=== PATIENT | female | born 1990 | race Two or more races ===

== ENCOUNTER 2017-06-02 01:50 | Emergency (ER) | payer OTHER ==
--- NOTE | 2017-06-02 01:54 | EDPHY ---
H & P HPI/ROS: HPI CHIEF COMPLAINT: Right lateral rib pain. Worse when coughing HISTORY OF PRESENT ILLNESS: Patient very pleasant 26-year-old female she denies having any significant medical history she is to be on control but is been off control for month. She reports to me that for the past month she has had intermittent coughing spells. She has been coughing worse over the past few weeks. With yellow productive sputum. No fever. She presents emergency room tonight due to severe 10/10 right lateral rib pain worse when she coughs and worse when she takes a deep breath. She denies any associated trauma. However she did have manipulation by a chiropractor yesterday and after this her rib pain got worse. She denies any midline back pain. The pain is worse when she takes deep breath in. It is pleuritic in nature sharp stabbing located right lateral ribs. Worse when she coughs. Worse when she takes a deep breath in. Denies fever. Denies vomiting. Denies abdominal pain. Denies chest pain except for right lateral rib pain. No history of PE. Off control. Does not smoke. Past Medical History: Denies medical history Past Surgical History: Denies surgical history Social History: Denies daily use drugs alcohol tobacco. 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 Family History: Noncontributory. ROS REVIEW OF SYSTEMS: A comprehensive 10 point review of systems is otherwise negative aside from elements mentioned in the history of present illness. Exam Constitutional appears well nontoxic triage nursing summary reviewed, vital signs reviewed, awake/alert. Eyes normal conjunctivae and sclera, EOMI, PERRLA. HENT normal inspection, atraumatic, moist mucus membranes, no epistaxis, neck supple/ no meningismus, no raccoon eyes. Respiratory clear to auscultation bilaterally, normal breath sounds, no respiratory distress, no wheezing. Cardiovascular tender palpation over the right lateral ribs no external visible signs of trauma,, no murmur, no edema, distal pulses normal. Gastrointestinal soft, non-tender, no rebound, no guarding, normal bowel sounds, no distension, no pulsatile mass. Genitourinary no CVA tenderness. Musculoskeletal no midline vertebral tenderness, full range of motion, no calf swelling, no tenderness of extremities, no meningismus, good pulses, neurovascularly intact. Skin pink, warm, & dry, no rash, skin atraumatic. Neurologic awake, alert and oriented x 3, AAOx3, moves all 4 extremities equally, motor intact, sensory intact, CN II-XII intact, normal cerebellar, normal vision, normal speech. Psychiatric normal mood/affect. Heme/Lymph/Immune no lymphadenopathy. Differential Diagnosis: Includes but is not limited to in a particular order pleurisy, pneumonia, pleural effusion, pulmonary embolism, musculoskeletal rib pain, rib fracture, musculoskeletal chest wall pain Medical Decision Making: Plan for this patient x-ray with rib series right- sided, IV establishment IV fluid bolus Toradol for pain control Dilaudid for pain control check basic blood work. Check D-dimer. Re-evaluate. Re-evaluation: EKG interpretation by me on record in [facility] system. Impression time of EKG 2:20 a.m., this is sinus rhythm rate of 73. I do not appreciate acute ischemic changes. There is no ST elevation. No ST depression. No T-wave abnormalities. No prolonged intervals. 0247: Patient's x-rays rib series reviewed by myself. No pneumothorax visualize. No rib fractures visualized. Unremarkable x-ray. [id number]: Blood work has been reviewed as well as chest x-ray. No evidence of pneumothorax or rib fracture. It is possible she has a musculoskeletal chest wall strain. Blood work is reassuring a D-dimer. Nonischemic EKG normal troponin. Feel comfortable allowing to go home. Given her cough is most likely musculoskeletal chest wall pain. Recommend cough suppressant, will prescribe ibuprofen 800 mg for mild pain [place] for severe pain Zofran for nausea. Do recommend getting [id number] cough medication. As well as she understands return emergency room she develops worsening symptoms questions or concerns. Source: Patient - Medical/Surgical History Hx Asthma: No Hx Chronic Respiratory Disease: No Hx Diabetes: No Hx Cardiac Disease: No Hx Renal Disease: No Hx Cirrhosis: No Hx Alcoholism: No Hx HIV/AIDS: No Hx Splenectomy or Spleen Trauma: No Other PMH: pilonidal cyst 2 months ago. - Social History Smoking Status: Never smoked Constitutional: Initial Vital Signs Temperature (C) 37.2 C 06/02/17 01:53 Heart Rate 90 06/02/17 01:53 Respiratory Rate 16 06/02/17 01:53 Blood Pressure 114/79 06/02/17 01:53 O2 Sat (%) 96 06/02/17 01:53 O2 Delivery Mode Room Air Allergies/Adverse Reactions: No Known Allergies Allergy (Verified 01/09/16 19:58) Home Medications: Medication Instructions Recorded Hydrocodone/APAP 5/325 [[place] 1 - 2 tab PO Q4H PRN #14 tab 06/02/17 5/325] Ibuprofen [Motrin (*)] 800 mg PO Q6-8PRN #20 tab 06/02/17 Ondansetron HCl [Zofran] 4 mg PO Q4-6PRN PRN #10 tablet 06/02/17 Medical Decision Making - Data Points Laboratory Results: Laboratory Results 06/02/17 02:09 06/02/17 02:09 06/02/17 06/02/17 06/02/17 03:00 02:09 02:09 WBC RBC Hgb Hct MCV MCH MCHC RDW Plt Count MPV Neut % (Auto) Lymph % (Auto) [place] % (Auto) Eos % (Auto) Baso % (Auto) Nucleat RBC Rel Count Absolute Neuts (auto) Absolute Lymphs (auto) Absolute Monos (auto) Absolute Eos (auto) Absolute Basos (auto) Absolute Nucleated RBC Immature Gran % Immature Gran # D-Dimer Sodium 140 mEq/L mEq/L (134-144) Potassium 4.0 mEq/L mEq/L (3.5-5.2) Chloride 103 mEq/L mEq/L (97-110) Carbon Dioxide 21 mEq/l L mEq/l (22-31) Anion Gap 16 mEq/L mEq/L (8-16) BUN 16 mg/dL mg/dL (7-23) Creatinine 0.7 mg/dL mg/dL (0.6-1.0) Estimated GFR > 60 Glucose 131 mg/dL H mg/dL (70-100) Calcium 9.8 mg/dL mg/dL (8.5-10.4) Total Bilirubin 0.3 mg/dL mg/dL (0.1-1.4) Conjugated Bilirubin 0.2 mg/dL mg/dL (0.0-0.5) Unconjugated Bilirubin 0.1 mg/dL mg/dL (0.0-1.1) AST 26 IU/L IU/L (14-46) ALT 39 IU/L IU/L (9-52) Alkaline Phosphatase 87 IU/L IU/L (38-126) Total Protein 7.8 g/dL g/dL (6.3-8.2) Albumin 4.6 g/dL g/dL (3.5-5.0) Lipase 150 IU/L IU/L (23-300) Beta HCG, Qual NEGATIVE Urine Color YELLOW Urine Appearance CLEAR Urine pH 6.0 (5.0-7.5) Ur Specific [place] 1.019 (1.002-1.030) Urine Protein NEGATIVE (NEGATIVE) Urine Ketones NEGATIVE (NEGATIVE) Urine Blood NEGATIVE (NEGATIVE) Urine Nitrate NEGATIVE (NEGATIVE) Urine Bilirubin NEGATIVE (NEGATIVE) Urine Urobilinogen NEGATIVE EU EU (0.2-1.0) Ur Leukocyte Esterase NEGATIVE (NEGATIVE) Urine Glucose NEGATIVE (NEGATIVE) 06/02/17 06/02/17 02:09 02:09 WBC 10.75 10^3/uL H 10^3/uL (3.80-9.50) RBC 5.30 10^6/uL 10^6/uL (4.18-5.33) Hgb 16.3 g/dL g/dL (12.6-16.3) Hct 45.8 % % (38.0-47.0) MCV 86.4 fL fL (81.5-99.8) MCH 30.8 pg pg (27.9-34.1) MCHC 35.6 g/dL g/dL (32.4-36.7) RDW 11.9 % % (11.5-15.2) Plt Count 251 10^3/uL 10^3/uL (150-400) MPV 9.9 fL fL (8.7-11.7) Neut % (Auto) 59.7 % % (39.3-74.2) Lymph % (Auto) 31.9 % % (15.0-45.0) [place] % (Auto) 6.6 % % (4.5-13.0) Eos % (Auto) 1.0 % % (0.6-7.6) Baso % (Auto) 0.3 % % (0.3-1.7) Nucleat RBC Rel Count 0.0 % % (0.0-0.2) Absolute Neuts (auto) 6.42 10^3/uL 10^3/uL (1.70-6.50) Absolute Lymphs (auto) 3.43 10^3/uL H 10^3/uL (1.00-3.00) Absolute Monos (auto) 0.71 10^3/uL 10^3/uL (0.30-0.80) Absolute Eos (auto) 0.11 10^3/uL 10^3/uL (0.03-0.40) Absolute Basos (auto) 0.03 10^3/uL 10^3/uL (0.02-0.10) Absolute Nucleated RBC 0.00 10^3/uL 10^3/uL (0-0.01) Immature Gran % 0.5 % % (0.0-1.1) Immature Gran # 0.05 10^3/uL 10^3/uL (0.00-0.10) D-Dimer 0.32 ug/mLFEU ug/mLFEU (0.00-0.50) Sodium Potassium Chloride Carbon Dioxide Anion Gap BUN Creatinine Estimated GFR Glucose Calcium Total Bilirubin Conjugated Bilirubin Unconjugated Bilirubin AST ALT Alkaline Phosphatase Total Protein Albumin Lipase Beta HCG, Qual Urine Color Urine Appearance Urine pH Ur Specific [place] Urine Protein Urine Ketones Urine Blood Urine Nitrate Urine Bilirubin Urine Urobilinogen Ur Leukocyte Esterase Urine Glucose Medications Given: Discontinued Medications Hydromorphone HCl (Dilaudid) 1 mg IVP EDNOW ONE Stop: 06/02/17 02:06 Last Admin: 06/02/17 02:14 Dose: 1 mg Sodium Chloride (Ns) 1,000 mls @ 0 mls/hr IV EDNOW ONE; Wide Open PRN Reason: Protocol Stop: 06/02/17 02:06 Last Admin: 06/02/17 02:16 Dose: 1,000 mls Ketorolac Tromethamine (Toradol) 15 mg IVP EDNOW ONE Stop: 06/02/17 02:07 Last Admin: 06/02/17 02:14 Dose: 15 mg Ondansetron HCl (Zofran) 4 mg IVP EDNOW ONE Stop: 06/02/17 02:06 Last Admin: 06/02/17 02:14 Dose: 4 mg Ondansetron HCl (Zofran) 4 mg IVP EDNOW ONE Stop: 06/02/17 03:41 Last Admin: 06/02/17 03:42 Dose: 4 mg Departure - Departure Disposition: Home, Routine, Self-Care Clinical Impression: Rib pain on right side Condition: Good Instructions: Musculoskeletal Pain (ED), Thoracic Pain (ED) Additional Instructions: 1. Return emergency room if he develops worsening pain questions or concerns. 2. [place] for severe pain. 3. Ibuprofen for mild pain. 4. Take it easy. Referrals: Amy Case PA [Primary Care Provider] - As per Instructions Prescriptions: Hydrocodone/APAP 5/325 [[place] 5/325] 1 - 2 tab PO Q4H PRN #14 tab PRN Reason: Pain, Moderate Ibuprofen [Motrin (*)] 800 mg PO Q6-8PRN #20 tab Ondansetron HCl [Zofran] 4 mg PO Q4-6PRN PRN #10 tablet PRN Reason: Nausea/Vomiting, Use 1st
[2017-06-02 01:59] VITALS: TEMP 99
[2017-06-02] MEDS ORDERED: HYDROmorphONE/DILAUDID 1 MG/ML INJ IVP ONE (02:05)
[2017-06-02] MEDS ORDERED: ONDANSETRON 4 MG/2 ML VIAL IVP ONE ×2 (02:05→03:40)
[2017-06-02] MEDS ORDERED: NS 1,000 ML IV ONE (02:05)
[2017-06-02] MEDS ORDERED: KETOROLAC 15 MG/1 ML SDV IVP ONE (02:06)
[2017-06-02 02:20] LABS: PLATELET COUNT 251 10^3/uL (150-400)
--- NOTE | 2017-06-02 02:30 | CPEKG ---
Heart Rate: 73 RR Interval: 822 P-R Interval: 144 QRSD Interval: 82 QT Interval: 364 QTC Interval: 401 P [place]: 51 QRS [place]: 47 T Wave [place]: 5 EKG Severity - NORMAL ECG - EKG Impression: SINUS RHYTHM Electronically Signed By: Franki Wagner 08-Jun-2017 12:36:33
--- NOTE | 2017-06-02 02:30 | CPEKG ---
Heart Rate: 73 RR Interval: 822 P-R Interval: 144 QRSD Interval: 82 QT Interval: 364 QTC Interval: 401 P [place]: 51 QRS [place]: 47 T Wave [place]: 5 EKG Severity - NORMAL ECG - EKG Impression: SINUS RHYTHM Electronically Signed By: Franki Wagner 08-Jun-2017 12:36:33
[2017-06-02 04:32] VITALS: BP 105/61; PULSE 74; RESP 18; O2SAT 97
== END 2017-06-02 04:32 | disposition home or self-care (01) ==
PROC: 3E0337Z Introduction of Electrolytic and Water Balance Substance into Peripheral Vein, Percutaneous Approach (ICD-10-PCS; principal; 2017-06-02)
DX: R07.81 Pleurodynia (principal); E86.9 Volume depletion, unspecified
CPT/HCPCS: 96374; J1170; J1885; J2405

== ENCOUNTER 2018-08-11 14:45 | Observation (INO) | payer OTHER ==
--- NOTE | 2018-08-11 14:52 | EDPHY ---
H & P Stated Complaint: nvd, rlq pain Time Seen by Provider: 08/11/18 14:50 HPI/ROS: CHIEF COMPLAINT: Abdominal pain HISTORY OF PRESENT ILLNESS: The patient presents to the ED with a 1 day history of abdominal pain. She reports several episodes of vomiting and 2 episodes of loose stool. She was seen by her primary care provider referred to the emergency department secondary to right lower quadrant pain and concerned about possible appendicitis. The patient reported that she felt well yesterday. She denies significant past medical history. She denies abdominal surgery. She does report she takes a control pill. REVIEW OF SYSTEMS: A comprehensive 10 point review of systems is otherwise negative aside from elements mentioned in the history of present illness. Source: Patient Exam Limitations: No limitations - Personal History LMP (Females 10-55): 8-14 Days Ago Current Tetanus Diphtheria and Acellular Pertussis (TDAP): Yes - Medical/Surgical History Hx Asthma: No Hx Chronic Respiratory Disease: No Hx Diabetes: No Hx Cardiac Disease: No Hx Renal Disease: No Hx Cirrhosis: No Hx Alcoholism: No Hx HIV/AIDS: No Hx Splenectomy or Spleen Trauma: No Other PMH: pilonidal cyst 2 months ago. - Social History Smoking Status: Never smoked - Physical Exam Exam: General Appearance: Alert, no distress Eyes: Pupils equal and round no pallor or injection ENT, Mouth: Mucous membranes moist Respiratory: There are no retractions, lungs are clear to auscultation Cardiovascular: Regular rate and rhythm Gastrointestinal: Tenderness to palpation right lower quadrant Neurological: 5/5 strength noted all 4 extremities Skin: Warm and dry, no rashes Musculoskeletal: Neck is supple nontender Extremities: symmetrical, full range of motion Constitutional: Initial Vital Signs Temperature (C) 37.2 C 08/11/18 14:47 Heart Rate 80 08/11/18 14:47 Respiratory Rate 16 08/11/18 14:47 Blood Pressure 120/74 08/11/18 14:47 O2 Sat (%) 97 08/11/18 14:47 O2 Delivery Mode Room Air Allergies/Adverse Reactions: No Known Allergies Allergy (Verified 01/09/16 19:58) Home Medications: Medication Instructions Recorded NK [No Known Home Meds] 08/11/18 Medical Decision Making - Diagnostics Imaging Results: Imaging Impressions Abdomen CT 08/11/18 15:38 Impression: 1. Equivocal CT findings of acute appendicitis with midportion of the appendix measuring up to 0.8 cm. Although this is mildly dilated per size criteria, no periappendiceal fat stranding is identified. Continued surveillance is recommended. 2. Reactive appearing right lower quadrant mesenteric lymph nodes which can be seen in mesenteric adenitis. Bossman Arevalo was notified of these findings by telephone at 5:06 PM on 08/11/2018 ED Course/Re-evaluation: The patient presents to the ED for evaluation of abdominal pain, vomiting and several loose stools today. The patient's primary care provider was concerned about appendicitis. The patient did have reproducible tenderness to palpation in the right lower quadrant. She certainly does have some symptoms which could be consistent with a enteritis and mesenteric adenitis. Given the uncertainty of the diagnosis we did discuss risks and benefits of imaging. It is not clear that the patient has obvious appendicitis and I do feel that CT scan would be prudent for further characterization of her symptoms. The patient's CT scan demonstrates ongoing equivocal findings of a slightly enlarged appendix without surrounding inflammation but also notes mesenteric adenitis noted in the region. The patient had an IV established he received a L of normal saline. She received Zofran and Toradol. The patient was noted to have some pyuria however I feel this is likely a contaminant as the patient has no symptoms of a UTI. Given the equivocal nature of the CT scan I did consult with Dr. Gonsalves from General surgery for a ED evaluation. Differential Diagnosis: Differential diagnosis considered includes appendicitis, mesenteric adenitis, gastroenteritis, ectopic - Data Points Laboratory Results: Laboratory Results 08/11/18 15:13 08/11/18 15:13 08/11/18 08/11/18 08/11/18 15:13 15:13 15:13 WBC 10.00 10^3/uL H 10^3/uL (3.80-9.50) RBC 4.99 10^6/uL 10^6/uL (4.18-5.33) Hgb 14.9 g/dL g/dL (12.6-16.3) Hct 42.2 % % (38.0-47.0) MCV 84.6 fL fL (81.5-99.8) MCH 29.9 pg pg (27.9-34.1) MCHC 35.3 g/dL g/dL (32.4-36.7) RDW 11.9 % % (11.5-15.2) Plt Count 262 10^3/uL 10^3/uL (150-400) MPV 9.9 fL fL (8.7-11.7) Neut % (Auto) 88.8 % H % (39.3-74.2) Lymph % (Auto) 9.3 % L % (15.0-45.0) [place] % (Auto) 1.4 % L % (4.5-13.0) Eos % (Auto) 0.0 % L % (0.6-7.6) Baso % (Auto) 0.1 % L % (0.3-1.7) Nucleat RBC Rel Count 0.0 % % (0.0-0.2) Absolute Neuts (auto) 8.88 10^3/uL H 10^3/uL (1.70-6.50) Absolute Lymphs (auto) 0.93 10^3/uL L 10^3/uL (1.00-3.00) Absolute Monos (auto) 0.14 10^3/uL L 10^3/uL (0.30-0.80) Absolute Eos (auto) 0.00 10^3/uL L 10^3/uL (0.03-0.40) Absolute Basos (auto) 0.01 10^3/uL L 10^3/uL (0.02-0.10) Absolute Nucleated RBC 0.00 10^3/uL 10^3/uL (0-0.01) Immature Gran % 0.4 % % (0.0-1.1) Immature Gran # 0.04 10^3/uL 10^3/uL (0.00-0.10) Sodium 137 mEq/L mEq/L (135-145) Potassium 3.8 mEq/L mEq/L (3.5-5.2) Chloride 106 mEq/L mEq/L (97-110) Carbon Dioxide 21 mEq/l L mEq/l (22-31) Anion Gap 10 mEq/L mEq/L (6-14) BUN 16 mg/dL mg/dL (7-23) Creatinine 0.6 mg/dL mg/dL (0.6-1.0) Estimated GFR > 60 Glucose 127 mg/dL H mg/dL (70-100) Calcium 9.5 mg/dL mg/dL (8.5-10.4) Beta HCG, Qual NEGATIVE Urine Color Urine Appearance Urine pH Ur Specific [place] Urine Protein Urine Ketones Urine Blood Urine Nitrate Urine Bilirubin Urine Urobilinogen Ur Leukocyte Esterase Urine RBC Urine WBC Ur Epithelial Cells Urine Bacteria Urine Mucus Urine Glucose 08/11/18 14:55 WBC RBC Hgb Hct MCV MCH MCHC RDW Plt Count MPV Neut % (Auto) Lymph % (Auto) [place] % (Auto) Eos % (Auto) Baso % (Auto) Nucleat RBC Rel Count Absolute Neuts (auto) Absolute Lymphs (auto) Absolute Monos (auto) Absolute Eos (auto) Absolute Basos (auto) Absolute Nucleated RBC Immature Gran % Immature Gran # Sodium Potassium Chloride Carbon Dioxide Anion Gap BUN Creatinine Estimated GFR Glucose Calcium Beta HCG, Qual Urine Color YELLOW Urine Appearance HAZY Urine pH 5.0 (5.0-7.5) Ur Specific [place] 1.027 (1.002-1.030) Urine Protein NEGATIVE (NEGATIVE) Urine Ketones 2+ H (NEGATIVE) Urine Blood 1+ H (NEGATIVE) Urine Nitrate NEGATIVE (NEGATIVE) Urine Bilirubin NEGATIVE (NEGATIVE) Urine Urobilinogen NEGATIVE EU EU (0.2-1.0) Ur Leukocyte Esterase 1+ H (NEGATIVE) Urine RBC 5-10 /hpf H /hpf (0-3) Urine WBC 10-15 /hpf H /hpf (0-3) Ur Epithelial Cells TRACE /lpf /lpf (NONE-1+) Urine Bacteria TRACE /hpf H /hpf (NONE SEEN) Urine Mucus 1+ /lpf /lpf (NONE-1+) Urine Glucose NEGATIVE (NEGATIVE) Medications Given: Discontinued Medications Sodium Chloride (Ns) 1,000 mls @ 0 mls/hr IV EDNOW ONE; Wide Open PRN Reason: Protocol Stop: 08/11/18 20:09 Last Admin: 08/11/18 20:10 Dose: 1,000 mls Ketorolac Tromethamine (Toradol) 30 mg IVP EDNOW ONE Stop: 08/11/18 17:08 Last Admin: 08/11/18 17:18 Dose: 30 mg Departure - Departure Disposition: [facility] Clinical Impression: Appendicitis Condition: Good
[2018-08-11 15:28] LABS: PLATELET COUNT 262 10^3/uL (150-400)
[2018-08-11] MEDS ORDERED: IOPAMIDOL (ISOVUE 370) 100 ML BTL IV ONE (16:13)
[2018-08-11] MEDS ORDERED: KETOROLAC 30 MG/1 ML SDV IVP ONE (17:07)
[2018-08-11] MEDS ORDERED: cefOXitin SODIUM 1 GM in NS 50 ML IV ONE (19:58)
[2018-08-11] MEDS ORDERED: NS 1,000 ML IV ONE (20:08)
[2018-08-11] MEDS ORDERED: HEPARIN 5,000 UNIT/0.5 ML INJ ONE ×2 (20:38→20:54)
[2018-08-11] MEDS ORDERED: ceFAZolin 1 GM/5 ML SYR ONE ×2 (20:39→20:54)
--- NOTE | 2018-08-11 20:57 | GHP ---
DATE OF ADMISSION: 08/11/2018 ADMITTING DIAGNOSIS: Probable appendicitis, right lower quadrant pain, mesenteric adenitis. HISTORY: The patient is a 27-year-old female who went to bed last night at 9 p.m. feeling well. At 5 a.m. this morning she woke up and noted abdominal discomfort which became distinctly more prominent when she sat up. She vomited at that point and has had diarrhea twice during the course of the day. She has had vomiting several times with movement during the course of the day. She tried Tums, Pepto-Bismol and water during the course of the day and each prompt vomiting. At this point, she is only thirsty. There is a history of upper respiratory tract infection in the last week. There is no history of diarrhea, though her stool has been slightly more watery in the past week. She has not had any travel in the last 6 months. She has had antibiotics in the last 3 months for UTI. There are no prior similar symptoms. She has had no prior abdominal surgery. There is no history of inflammatory bowel disease. Her beta hCG is negative. SOCIAL HISTORY: She does not smoke. She drinks approximately a glass of wine a week. ALLERGIES: She has no known drug allergies. Her only medication is oral contraceptives. Her only surgery has been treatment of a pilonidal cyst 2-3 years ago. There is no history of rheumatic fever, tuberculosis, hepatitis, or transfusions. REVIEW OF SYSTEMS: Otherwise, completely negative. There are no limits on her activities and no history of steroid use. PHYSICAL EXAMINATION: VITAL SIGNS: Her blood pressure is 119/69, heart rate 70 , room air saturation is 98%. Temperature is 36.9. White blood cell count is 10.0 with 88.8% neutrophils. Hematocrit is 42.2, platelet count is 262. Beta hCG as mentioned above is negative. Glucose is 127. Her urine shows 10-15 white cells per high-power field. C and S is pending. GENERAL: She is awake, alert, pleasant and interactive. HEAD AND NECK: Her skull is normocephalic and atraumatic. She has normal dental occlusion. NEUROLOGIC: She is oriented to person, place, and time. GCS is 15. There are no focal lateralizing neurologic findings. NECK: Thyroid is not enlarged. There are no carotid bruits noted. LYMPHATICS: There is no cervical, supraclavicular, axillary or inguinal lymphadenopathy. BACK: Unremarkable. LUNGS: Clear to auscultation. CARDIAC: Shows S1, S2 to be normal. Normal split of S2 without murmurs, rubs, or gallops. ABDOMEN: Soft. She is nontender with cough. She does have a positive psoas, but a negative obturator sign. To palpation, left upper quadrant is 2, left mid abdomen is 1, left lower quadrant is 1, epigastrium is 1, periumbilical area is 1, suprapubic area is 1, right upper quadrant is 1, right mid abdomen is 2, right lower quadrant is 3. A CT shows some mesenteric adenitis. The appendix is 8 mm in diameter. I do not see any appendicoliths. There is no hyperemia of the wall and there is no periappendiceal "smudging." We talked about the options of observation, observation with antibiotics, admission with IV antibiotics, and surgery. After a long discussion with her family, she wishes to proceed with the surgical approach. She will receive 1 g of cefoxitin. /[id number]/MODL MTDD
[2018-08-11] MEDS ORDERED: MIDAZOLAM 2 MG/2 ML VIAL IVP ONE (21:01)
[2018-08-11] MEDS ORDERED: SCOPOLAMINE HYDROBROMIDE 1 MG/3 DAYS PATCH TD ONE (21:02)
[2018-08-11] MEDS ORDERED: LR 1,000 ML IV ONE (21:06)
[2018-08-11] MEDS ORDERED: SCOPOLAMINE HYDROBROMIDE 1 MG/3 DAYS PATCH TD SCH (21:15)
[2018-08-11] MEDS ORDERED: MIDAZOLAM 2 MG/2 ML VIAL ONE (21:30)
--- NOTE | 2018-08-11 21:31 | PDANEPAE ---
ANE History of Present Illness Laparoscopic Appendectomy ANE Past Medical History - Cardiovascular History Hx Hypertension: No Hx Arrhythmias: No Hx Chest Pain: No Hx Coronary Artery / Peripheral Vascular Disease: No Hx CHF / Valvular Disease: No Hx Palpitations: No - Pulmonary History Hx COPD: No Hx Asthma/Reactive Airway Disease: No Hx Recent Upper Respiratory Infection: No Hx Oxygen in Use at Home: No Hx Sleep Apnea: No - Endocrine History Hx Diabetes: No Hypothyroid: No Hyperthyroid: No Obesity: no ANE Review of Systems Review of systems is: negative Review of Systems: - Exercise capacity METS (RN): 4 METS ANE Patient History - Allergies Allergies/Adverse Reactions: No Known Allergies Allergy (Verified 01/09/16 19:58) - Home Medications Home Medications: Herbals/Supplements -Info Only 1 ea PO DAILY 08/11/18 [Last Taken 08/11/18] Norgestimate-Ethinyl Estradiol [F[place] 28 Tablet] 1 ea PO HS 08/11/18 [Last Taken 08/10/18] - NPO status NPO Since - Liquids (Date): 08/11/18 NPO Since - Liquids (Time): 10:00 NPO Since - Solids (Date): 08/11/18 NPO Since - Solids (Time): 10:00 - Anes Hx Anes Hx: post operative nausea - Smoking Hx Smoking Status: Never smoked ANE Labs/Vital Signs - Labs Result Diagrams: 08/11/18 15:13 08/11/18 15:13 - Vital Signs Blood Pressure: 114/72 Heart Rate: 67 Respiratory Rate: 18 O2 Sat (%): 99 Height: 154.94 cm Weight: 58.967 kg ANE Physical Exam - Airway Neck exam: FROM Mallampati Score: Class 1 Mouth exam: normal dental/mouth exam - Pulmonary Pulmonary: no respiratory distress, no rales or rhonchi - Cardiovascular Cardiovascular: regular rate and rhythym, no murmur, rub, or gallop - ASA Status ASA Status: I ANE Anesthesia Plan Anesthesia Plan: general endotracheal anesthesia
[2018-08-11] MEDS ORDERED: PROPOFOL 200 MG/20 ML VIAL ONE (21:34)
[2018-08-11] MEDS ORDERED: PROPOFOL/EMULSION 500 MG/50 ML BOTTLE IV ONE (21:34)
[2018-08-11] MEDS ORDERED: fentaNYL 100 MCG/2 ML INJ ONE ×5 (21:34→23:23)
[2018-08-11] MEDS ORDERED: ROCURONIUM 50 MG/5 ML VIAL ONE (21:34)
[2018-08-11] MEDS ORDERED: LIDOCAINE 2% 5 ML SDV ONE (21:34)
[2018-08-11] MEDS ORDERED: KETOROLAC 30 MG/1 ML SDV ONE (21:34)
[2018-08-11] MEDS ORDERED: GLYCOPYRROLATE 0.2 MG/1 ML VIAL ONE ×3 (21:34→22:35)
[2018-08-11] MEDS ORDERED: ONDANSETRON 4 MG/2 ML VIAL ONE (21:34)
[2018-08-11] MEDS ORDERED: DEXAMETHASONE 4 MG/ML VIAL ONE (21:35)
[2018-08-11] MEDS ORDERED: NALOXONE HCL 0.4 MG/ML INJ IVP PRN (22:22)
[2018-08-11] MEDS ORDERED: ALBUTEROL 3 ML DEYVIAL IH PRN (22:22)
[2018-08-11] MEDS ORDERED: ONDANSETRON 4 MG/2 ML VIAL IVP PRN ×2 (22:22→23:14)
[2018-08-11] MEDS ORDERED: PROMETHAZINE HCL 25 MG/ML INJ IVP PRN (22:22)
[2018-08-11] MEDS ORDERED: METOPROLOL TARTRATE 5 MG/5 ML INJ ONE (22:23)
[2018-08-11] MEDS: fentaNYL 100 MCG/2 ML INJ IVP PRN ×4 (23:02→23:40)
[2018-08-11] MEDS ORDERED: HYDROmorphONE/DILAUDID 1 MG/ML INJ IVP PRN (23:14)
--- NOTE | 2018-08-11 23:14 | POSTOPPROG ---
Post Op Note Date of Operation: 08/11/18 Surgeon: Dada Gonsalves Anesthesia: GET(General Endotracheal) Pre-op Diagnosis: RLQ pain, Mesenteric adenitis, Appendicitis Post-op Diagnosis: Acute unruptured appendicitis Indication: RLQ pain, Mesenteric adenitis, Appendicitis Procedure: Laparoscopic appendectomy Findings: Acute unruptured appendicitis Inf/Abcess present in the surg proc area at time of surgery?: No EBL: Minimal Total fluids administered: 1000 Complications: none Specimen(s): appendix
[2018-08-11] MEDS ORDERED: HYDROmorphONE/DILAUDID 2 MG/ML INJ ONE (23:23)
[2018-08-11] MEDS: HYDROmorphONE/DILAUDID 2 MG/ML INJ IVP PRN ×2 (23:25→23:41)
[2018-08-11] MEDS ORDERED: ACETAMINOPHEN 500 MG TAB ONE (23:27)
[2018-08-11] MEDS: ACETAMINOPHEN 500 MG TAB PO SCH (23:27)
[2018-08-11] MEDS ORDERED: LR 1,000 ML IV SCH (23:30)
[2018-08-12] MEDS: KETOROLAC 15 MG/1 ML SDV IVP SCH ×2 (00:23→06:01)
--- NOTE | 2018-08-12 06:29 | GOP ---
DATE OF OPERATION: 08/11/2018 SURGEON: Dada Gonsalves MD ANESTHESIA: General endotracheal. PREOPERATIVE DIAGNOSIS: Right lower quadrant pain, mesenteric adenitis, appendicitis. POSTOPERATIVE DIAGNOSIS: Acute unruptured appendicitis. PROCEDURE PERFORMED: Laparoscopic appendectomy. FINDINGS: Acute unruptured appendicitis. SPECIMENS: Appendix. ESTIMATED BLOOD LOSS: 10 cc. INDICATIONS: Same. DESCRIPTION OF PROCEDURE: The patient was placed on the operating table in supine position. She was placed under general endotracheal anesthesia. A surgical time-out was carried out and agreed to by all members of the operative team. Abdomen was now carefully prepped and draped. A curvilinear incision was made at the umbilicus. Dissection was continued down to the anterior rectus sheath which was elevated between Allis clamps and divided in the midline. Pursestring #0 PDS was placed. A disposable 11-12 mm Juan Carlos trocar was positioned. Intra-abdominal insufflation was carried out to 15 mmHg. The patient was placed in Trendelenburg. A 5 mm incision was made left lower quadrant for placement of the port. A transverse suprapubic incision was made for placement of another port. On abdominal examination, both ovaries were examined and found to be unremarkable. Photographic documentation was carried out. There were adhesions between the ascending colon and the anterior abdominal wall. These were not lysed. The appendix was edematous and enlarged. It was carefully elevated with an Endo Allis clamp. The mesoappendix was divided with the Harmonic Scalpel down to its base on the cecum. The appendix was carefully elevated. The appendiceal cecal junction was carefully taken with a cuff of cecum using a 35 mm powered Endo-LEAH stapler. The specimen was placed in EndoCatch bag and delivered via the umbilical port site. Pneumoperitoneum was re-established. Hemostasis is excellent. There was no evidence of peritoneal fluid. Irrigation with heparin and Ancef- containing irrigant is carried out. The small bowel was run for a distance of approximately 3.5 feet. Mesenteric adenitis is not appreciated. There is no evidence of a Meckel's diverticulum either. The ports were removed under direct vision. An additional 5-0 PDS suture was placed in inverted simple technique to close the midline fascial defect. The pursestring was now tied. The subcutaneous tissue was well irrigated. Hemostasis was found to be excellent. All incisions were closed with inverted simple sutures of #4-0 Vicryl. Mastisol and Steri-Strips were placed. Band-Aids were positioned. The patient was transferred to recovery in stable and satisfactory condition. FLUIDS ADMINISTERED: 1000 cc. COMPLICATIONS: None. /[id number]/MODL MTDD
--- NOTE | 2018-08-12 07:07 | POSTANESTH ---
Post Anesthetic Evaluation Cardiovascular Status: Normal, Stable Respiratory Status: Normal, Stable Level of Consciousness/Mental Status: Can Participate in Eval Pain Control: Adequate, Prn Tx Ordered Nausea/Vomiting Control: Adequate, Prn Tx Ordered Complications Possibly Related to Anesthesia: None Noted
[2018-08-12 08:20] VITALS: BP 93/45
[2018-08-12] MEDS: ACETAMINOPHEN 500 MG TAB PO SCH (09:47)
--- NOTE | 2018-08-12 09:48 | ASMTCMCOM ---
CM Note CM Note Notes: Pt is a 28 y/o female admitted for right lower quadrant pain, mesenteric adenitis and appendicitis. Pt went to surgery and had her appendix removed. Pt will most likely d/c independent when medically stable. No therapies ordered at this time. CM available for changes. Plan: Independent Date Signed: 08/12/2018 09:48 AM Electronically Signed By:MARIALUISA Villa
--- NOTE | 2018-08-12 14:30 | SOAPPROG ---
SOAP Progress Note Assessment/Plan: 08/12/18 14:27 Assessment: Doing well on POD#1, VSS, incisions clean and dry, passing gas, eating Plan: discharge Subjective: No complaints Objective: Vital Signs Temp Pulse Resp BP Pulse Ox 36.9 C 58 L 16 93/45 L 95 08/12/18 08:19 08/12/18 08:19 08/12/18 08:19 08/12/18 08:19 08/12/18 08:19 08/11/18 08/12/18 08/13/18 05:59 05:59 05:59 Intake Total 3550 Output Total 10 100 Balance 3540 -100 - Time Spent With Patient Time Spent With Patient: 15 Physical Exam - Physical Exam General Appearance: WD/WN, alert, no apparent distress EENT: PERRL/EOMI Neck: full range of motion Respiratory: chest non-tender, lungs clear, normal breath sounds Cardiac/Chest: regular rate, rhythm Abdomen: normal bowel sounds, non-tender, soft, distended, other (incisions clean and dry) Pelvic Exam: deferred Rectal: deferred Back: Normal inspection Skin: normal color, warm/dry Extremities: normal range of motion, non-tender, normal inspection Neuro/Psych: no motor/sensory deficits, alert, normal mood/affect, oriented x 3 ICD10 Worksheet Patient Problems: Problems Problem Status Onset Appendicitis Acute
--- NOTE | 2018-08-12 14:58 | GDS ---
DISCHARGE DIAGNOSIS: Acute appendicitis. DISPOSITION: Home. SURGERIES: Laparoscopic appendectomy. CONDITION: Good. DIET RECOMMENDATIONS: No restrictions on the diet. DIETARY TEXTURE: No restrictions. MEDICATIONS AT DISCHARGE: Tylenol 1000 mg every 8 hours, oral contraceptives be to be resumed. She may resume her herbal supplements. She is to take Toradol 10 mg every 6 hours for the next 5 days. She has Dilaudid for breakthrough pain. ACTIVITY: She is to use an alternative form of control for the next month. She is to avoid constipating foods such as bananas, rice, applesauce or cheese. For the next 3 weeks, she is to lift less than 10 pound. She may shower only. She is to avoid hot tubs or tubs. She is to keep small white tapes (Steri-Strips) in place. She is to take a multivitamin with 100% of the [employer] of zinc, copper and C on a daily basis. She may use a heating pad on her incisions for 45 minutes 4 times a day. She is to watch for signs of infection. Superficial infection would be redness, warmth, swelling or tenderness. Deep infection would be loss of appetite, fevers, chills, abdominal pain, and fatigue. The 1st day she returns to work, she is to limit the workday to 4 hours per day. She is to follow up with Dr. Liam Jenkins' office in 2 weeks. At that point, her pathology report will be shared with her. If she has other questions , she may call sooner than that. HOSPITAL COURSE: The patient was admitted and taken to the operating room, where an appendectomy was performed. She has done well postoperatively. She is taking a regular diet, passing gas, and pain is well-controlled. Her incisions were clean and dry. /[id number]/MODL MTDD
--- NOTE | 2018-08-12 15:49 | ASDISCHSUM ---
Discharge Information Plan Status:Home with No Needs Medically Cleared to Leave:08/11/2018 Discharge Date:08/11/2018 CM D/C Disposition:Home, Routine, Self-Care ADT D/C Disposition:Home, Routine, Self-Care Projected Discharge Date:08/11/2018 Transportation at D/C:Friend Discharge Delay Reason: Follow-Up Date:08/11/2018 Discharge Slot: Final Diagnosis:appendicitis Placement Information Patient Contact Information Contact Name:YARELIS Relationship:Sister Address: Work Phone: City: [facility] Phone: State/[employer] Code: Email: Financial Information Financial Class:[employer] Primary Plan Desc:[facility] Primary Plan Number:[id number] Secondary Plan Desc: Secondary Plan Number: Assessment Information LACE LACE Length of stay for Answers: Less than 1 day current admission Acuity / Level of Answers: No Care: Did the patient have an inpatient admission? Comorbidities - select Answers: Other Notes: appendicitis all that apply # of Emergency department Answers: 1-2 visits in the last 6 months Score: 2 Date Signed: 08/12/2018 03:48 PM Electronically Signed By:Diana Chin [facility] CM Progress Note CM Note CM Note Notes: Pt is a 28 y/o female admitted for right lower quadrant pain, mesenteric adenitis and appendicitis. Pt went to surgery and had her appendix removed. Pt will most likely d/c independent when medically stable. No therapies ordered at this time. CM available for changes. Plan: Independent Date Signed: 08/12/2018 09:48 AM Electronically Signed By:MARIALUISA Villa Case Management Discharge Plan Note Case Management Discharge Discharge Order Complete? Answers: Yes Patient to Obtain Answers: via Family Medications Transportation Arranged Answers: Family/Friends Transport will Pick (Date 08/12/2018 12:00 AM & Time) Family Notified Answers: Yes Notes: sister in the room Discharge Comments Notes: Pt to discharge independently with support from sister and boyfriend. Spoke with pt in the room. No CM needs noted at this time. CM available should needs change. Date Signed: 08/12/2018 03:49 PM Electronically Signed By:Diana Chin Intervention Information
[2018-08-12] MEDS ORDERED: NORGESTIMATE ETHINYL ESTRADIOL PO SCH (21:00)
[2018-08-14] MEDS ORDERED: PATCH REMOVAL 1 EA PATCH TD SCH (21:02)
== END 2018-08-12 16:38 | disposition home or self-care (01) ==
LOC: F1N 23:41
PROVIDERS: ADMIT Surgery; ATTEND Surgery
PROC: 0DTJ4ZZ Resection of Appendix, Percutaneous Endoscopic Approach (ICD-10-PCS; principal; 2018-08-11 21:00)
DX: K35.80 Unspecified acute appendicitis (principal); I88.0 Nonspecific mesenteric lymphadenitis; E86.0 Dehydration
CPT/HCPCS: 44970; 74177; 96361; 96374; 96375; 96376; 99285; G0378; J0694; J1100; J1170; J1644; J1885; J2250; J2405; J2704; J3010; Q9967

== ENCOUNTER 2018-08-15 12:32 | Emergency (ER) | payer OTHER ==
[2018-08-15 12:38] VITALS: BP 106/57
--- NOTE | 2018-08-15 13:17 | EDPHY ---
H & P Stated Complaint: hematuria, nausea/dizzy, appy 08/11/18 Time Seen by Provider: 08/15/18 13:16 - Personal History LMP (Females 10-55): 8-14 Days Ago - Medical/Surgical History Hx Asthma: No Hx Chronic Respiratory Disease: No Hx Diabetes: No Hx Cardiac Disease: No Hx Renal Disease: No Hx Cirrhosis: No Hx Alcoholism: No Hx HIV/AIDS: No Hx Splenectomy or Spleen Trauma: No Other PMH: pilonidal cyst 2 months ago. appy 08/11/18 - Social History Smoking Status: Never smoked Constitutional: Initial Vital Signs Temperature (C) 36.7 C 08/15/18 12:36 Heart Rate 76 08/15/18 12:36 Respiratory Rate 16 08/15/18 12:36 Blood Pressure 106/57 L 08/15/18 12:36 O2 Sat (%) 97 08/15/18 12:36 O2 Delivery Mode Room Air Allergies/Adverse Reactions: No Known Allergies Allergy (Verified 01/09/16 19:58) Home Medications: Medication Instructions Recorded Herbals/Supplements -Info Only 1 ea PO DAILY 08/11/18 Norgestimate-Ethinyl Estradiol 1 ea PO HS 08/11/18 [Femynor 28 Tablet] Acetaminophen [Tylenol ES 500 mg 1,000 mg PO Q8H tab 08/12/18 (*)] Ketorolac Tromethamine [Toradol 1 tab PO Q6 5 Days tab 08/12/18 10mg tab] Cephalexin [Keflex (RX)] 500 mg PO TID #20 cap 08/15/18 Phenazopyridine HCl [Pyridium] 200 mg PO TID #6 tab 08/15/18 Medical Decision Making ED Course/Re-evaluation: CHIEF COMPLAINT: Hematuria HISTORY OF PRESENT ILLNESS: The patient is a 28 y/o female with a history of a laparoscopic appendectomy on August 11, 4 days ago. This morning, she was began experiencing hematuria. She was directed to drink lots of fluids and present to the ED if symptoms continue by her surgeon, Dr. Gonsalves. Today, she has been experiencing hematuria off and on today. She has associated pressure at one of the scope incisions when she urinates. She denies any burning when urinating or any other associated symptoms. REVIEW OF SYSTEMS: A comprehensive 10 system review of systems is otherwise negative aside from elements mentioned in the history of present illness and medical decision making. PHYSICAL EXAM: HR, BP, O2 Sat, RR. Temp noted General Appearance: Alert, well hydrated, appropriate, and non-toxic appearing. Head: Atraumatic without scalp tenderness or obvious injury Respiratory: No retractions, no distress, no wheezes, and no accessory muscle use. Lungs are clear to auscultation bilaterally. Cardiovascular: Regular rate and rhythm, no murmurs, rubs, or gallops. Good capillary refill all extremities. Gastrointestinal: Abdomen is soft, nontender, non-distended, no masses, no rebound, no guarding, no peritoneal signs. Several scope meredith on abdomen, all healing well. Musculoskeletal: Normal active ROM of all extremities, atraumatic. Neurological: Alert, appropriate, and interactive. Skin: No rashes, good turgor, no nodules on palpation. Past medical history: Denies Past surgical history: Appendectomy Family history: Non-contributory Social history: Mother at bedside, lives in [place], employed by [employer] DIFFERENTIAL DIAGNOSIS: The differential diagnosis for this patient's hematuria included but was not limited to urinary tract infection, surgical complication, and kidney stone. MEDICAL DECISION MAKING: The patient presents with hematuria. She recently underwent a laparoscopic appendectomy. She reports some pressure in one of the surgical sites when urinating. Exam is normal. Urinalysis shows some bacteria and blood. She is safe to return home on antibiotics. She agrees to this course of action. - Data Points Laboratory Results: 08/15/18 12:45 Urine Color PALE YELLOW Urine Appearance CLEAR Urine pH 7.0 (5.0-7.5) Ur Specific [place] 1.006 (1.002-1.030) Urine Protein NEGATIVE (NEGATIVE) Urine Ketones NEGATIVE (NEGATIVE) Urine Blood 3+ H (NEGATIVE) Urine Nitrate NEGATIVE (NEGATIVE) Urine Bilirubin NEGATIVE (NEGATIVE) Urine Urobilinogen NEGATIVE EU EU (0.2-1.0) Ur Leukocyte Esterase NEGATIVE (NEGATIVE) Urine RBC 1-3 /hpf /hpf (0-3) Urine WBC 1-3 /hpf /hpf (0-3) Ur Epithelial Cells TRACE /lpf /lpf (NONE-1+) Urine Bacteria TRACE /hpf H /hpf (NONE SEEN) Urine Glucose NEGATIVE (NEGATIVE) Departure - Departure Disposition: Home, Routine, Self-Care Clinical Impression: Urinary tract infection Qualifiers: Urinary tract infection type: site unspecified Hematuria presence: with hematuria Qualified Code(s): N39.0 - Urinary tract infection, site not specified Condition: Good Instructions: Urinary Tract Infection in Women (ED) Additional Instructions: 1. Please take all doses of your antibiotics, even if you improve before the end of the course. 2. Return to the emergency department for any worsening of condition. Referrals: Dada Gonsalves MD [Medical Doctor] - As per Instructions Chris Faustin MD [Medical Doctor] - As per Instructions Prescriptions: Cephalexin [Keflex (RX)] 500 mg PO TID #20 cap Phenazopyridine HCl [Pyridium] 200 mg PO TID #6 tab Report Scribed for: Roosevelt Lemus Report Scribed by: Ivette Westfall Date of Report: 08/15/18 Time of Report: 13:31
[2018-08-15] MEDS ORDERED: CEPHALEXIN 500 MG CAP PO ONE (13:24)
== END 2018-08-15 13:38 | disposition home or self-care (01) ==
DX: N30.91 Cystitis, unspecified with hematuria (principal); Z90.49 Acquired absence of other specified parts of digestive tract